=== PATIENT | female | born 1940 | race Caucasian/White ===

== ENCOUNTER 2021-10-14 10:33 | Observation (INO) ==
--- NOTE | 2021-09-08 16:30 | PAT Medication Instructions ---
Medication Instructions Date of Service September 08, 2021 Home Medications enalapril maleate 20 mg tablet 20 mg PO BID hydrochlorothiazide 25 mg tablet 25 mg PO QAM iron aspgl and ps cmplx 150 mg-vit C 50 mg-succinic acid 50 mg capsule (Ferrex) 1 cap PO Q24H liraglutide 0.6 mg/0.1 mL (18 mg/3 mL) subcutaneous pen injector (Victoza 2-Curtis) 1.2 mg SUBCUT QAM metformin 500 mg tablet 500 mg PO QAM acetaminophen 500 mg tablet (Acetaminophen Extra Strength) 1,000 mg PO DAILY PRN calcium carbonate 600 mg-vitamin D3 10 mcg (400 unit) tablet (Calcium 600 + D(3)) 1 tab PO BID carvedilol 25 mg tablet 25 mg PO BID dihydroxyaluminum sodium carb 334 mg chewable tablet 334 mg PO DAILY PRN loperamide 2 mg tablet 1 mg PO QAM omega-3 fatty acids 1,000 mg PO QAM STOP taking 2 weeks before surgery (or as soon as possible if surgery is within 2 weeks) omega-3 fatty acids 1,000 mg PO QAM DO NOT take the morning of surgery enalapril maleate 20 mg tablet 20 mg PO BID hydrochlorothiazide 25 mg tablet 25 mg PO QAM iron aspgl and ps cmplx 150 mg-vit C 50 mg-succinic acid 50 mg capsule (Ferrex) 1 cap PO Q24H liraglutide 0.6 mg/0.1 mL (18 mg/3 mL) subcutaneous pen injector (Victoza 2-Curtis) 1.2 mg SUBCUT QAM metformin 500 mg tablet 500 mg PO QAM calcium carbonate 600 mg-vitamin D3 10 mcg (400 unit) tablet (Calcium 600 + D(3)) 1 tab PO BID dihydroxyaluminum sodium carb 334 mg chewable tablet 334 mg PO DAILY PRN loperamide 2 mg tablet 1 mg PO QAM Take morning of surgery With a small sip of water, OTHERWISE NOTHING TO EAT OR DRINK AFTER MIDNIGHT: acetaminophen 500 mg tablet (Acetaminophen Extra Strength) 1,000 mg PO DAILY PRN (okay to take up to 4 hours prior to surgery if needed) carvedilol 25 mg tablet 25 mg PO BID Take evening before surgery enalapril maleate 20 mg tablet 20 mg PO BID acetaminophen 500 mg tablet (Acetaminophen Extra Strength) 1,000 mg PO DAILY PRN (if needed) calcium carbonate 600 mg-vitamin D3 10 mcg (400 unit) tablet (Calcium 600 + D(3)) 1 tab PO BID carvedilol 25 mg tablet 25 mg PO BID dihydroxyaluminum sodium carb 334 mg chewable tablet 334 mg PO DAILY PRN (if needed) Other Notes If you have any questions please call us at [phone] or [phone] or [phone] or [phone]
--- NOTE | 2021-09-09 13:46 | Anesthesiology Consultation ---
Date of Service September 09, 2021 Assessment & Plan (1) Encounter for pre-operative examination: - will attempt to obtain most recent PCP note for chart. - check BSG am DOS. - COVID screening: Per assessment on 09/09/2021: Travel screen negative, no known COVID-19 positive contacts or current COVID-19 related symptoms in past 2 weeks. Patient vaccinated. Surgeon arranging preop COVID testing, scheduled 10/12/2021. Awaiting results. Chart Review Chart Review: Pending: Refer to Additional Notes / Consult section and Patient seen in Pre Admission Testing Teaching & Discussion Pre-Anesthesia Teaching/Discussion Notes: Instructed NPO after midnight before surgery, except medications with 15 cc of water. Medication instructions provided according to the PAT guidelines. History Surgery Operation Date: 10/14/21 08:50 Proposed Procedures p Left Revision Total Knee Replacement - Robson Jean MD Height/Weight Height: 5 ft 5 in Weight: 95.1 kg Allergies Allergy/AdvReac Type Severity Reaction Status Date / Time No Known Allergies Allergy Verified 09/08/21 14:40 Medications Home Medications Medication Instructions Recorded Confirmed Last Taken enalapril maleate 20 mg tablet 20 mg PO BID 08/19/21 09/08/21 Unknown hydrochlorothiazide 25 mg tablet 25 mg PO QAM 08/19/21 09/08/21 Unknown iron aspgl and ps cmplx 150 mg-vit 1 cap PO Q24H 08/19/21 09/08/21 Unknown C 50 mg-succinic acid 50 mg capsule (Ferrex) liraglutide 0.6 mg/0.1 mL (18 mg/3 1.2 mg SUBCUT QAM 08/19/21 09/08/21 Unknown mL) subcutaneous pen injector (Victoza 2-Curtis) metformin 500 mg tablet 500 mg PO QAM 08/19/21 09/08/21 Unknown acetaminophen 500 mg tablet 1,000 mg PO DAILY PRN 09/08/21 09/08/21 Unknown (Acetaminophen Extra Strength) calcium carbonate 600 mg-vitamin 1 tab PO BID 09/08/21 09/08/21 Unknown D3 10 mcg (400 unit) tablet (Calcium 600 + D(3)) carvedilol 25 mg tablet 25 mg PO BID 09/08/21 09/08/21 Unknown dihydroxyaluminum sodium carb 334 334 mg PO DAILY PRN 09/08/21 09/08/21 Unknown mg chewable tablet loperamide 2 mg tablet 1 mg PO QAM 09/08/21 09/08/21 Unknown omega-3 fatty acids 1,000 mg PO QAM 09/08/21 09/08/21 Unknown Past Medical History Medical History (Updated 09/09/21 @ 15:50 by Karla Hall PA-C) Aseptic loosening of prosthetic knee Diabetes mellitus, type 2 NIDDM Hypertension controlled, stable per pt Orthostatic hypotension Poor historian Urinary incontinence Patient denies h/o stroke, seizures, heart attack, heart failure, blood clots or blood transfusions. Exercise / Class Metabolic Activity III < 4 Walking/Shop/Light housework (ambulates with cane, denies CP or SOB) Past Family History Family History Other No family history of adverse response to anesthesia Past Surgical History Surgical History History of appendectomy History of carpal tunnel release unsure which History of cholecystectomy History of dilatation and curettage History of eye surgery bilateral---pt not sure if it was cataracts or something else History of tonsillectomy History of tooth extraction History of total left knee replacement (TKR) (~12/2002) History of total right hip replacement (~2014) History of total right knee replacement (TKR) (~09/2002) Status post trigger finger release Past Anesthesia History No Hx of Anesthesia Complications and No Family Hx of Anesthesia Complications History of PONV No Hx of PONV and No Hx of Motion Sickness Social History Smoking Status: Never smoker Do You Dip or Chew Tobacco: No Hx Alcohol Use: No Hx Substance Use: No substance use type: does not use Review of Systems Occasional dizziness with rapid position change; managed by slow position changes and physical therapy. Occasional snoring per family. Patient denies chest pain, shortness of breath, dyspnea on exertion, reflux, fever, chills, cough, wheezing, or palpitations. Physical Exam Vital Signs Vitals BP 100/51 (Typical range for pt per pt and daughter) P 66 TEMP 98.5 SP02 97% on RA RESP 17 Physical Full cervical extension range of motion without pain TMD 3.5 finger breaths Mallampati Score 2 Dentition: intact, Lungs: normal respiratory effort. Clear throughout to auscultation, no adventitious breath sounds Cardiac: regular rate and rhythm, no murmurs noted Carotid arteries: negative bruit bilat Lab Results Anesthesia Preop Results Results Anesthesia Widget: WBC 6.11 K/uL (4.8-10.8) 09/09/21 Hgb 12.2 g/dL (12.0-16.0) 09/09/21 Hct 37.3 % (37-47) 09/09/21 Plt 230 K/uL (130-400) 09/09/21 Na 139 mmol/L (136-145) 09/09/21 K 3.9 mmol/L (3.5-5.1) 09/09/21 Cl 102 mmol/L (98-107) 09/09/21 CO2 27 mmol/L (21-32) 09/09/21 BUN 21 mg/dl (6-23) 09/09/21 Creat 0.99 mg/dl (0.6-1.2) 09/09/21 Glucose Level 109 mg/dl (70-99(Fasting)) H 09/09/21 PT 11.8 Seconds (9.0-12.0) 09/09/21 PTT 25.4 Seconds (21.0-31.0) 09/09/21 INR 1.1 (0.9-1.1) 09/09/21 Blood Type B Positive 09/09/21 Antibody Screen NEGATIVE 09/09/21 Testing Laboratory Results 08/29/2021 A1c: 6.7% Electrocardiogram Date: 09/09/21 NSR, rate 63 bpm Chest X-Ray Date: 09/09/21 The lungs are clear. Cardiac silhouette is normal in size. No pleural effusions. No pneumothorax. Mild degenerative changes within the thoracic spine. Prior cholecystectomy. Calcifications within the aortic knob. IMPRESSION: No acute process.
--- NOTE | 2021-10-08 11:45 | History and Physical Report ---
CHIEF COMPLAINT: Persistent left knee pain and discomfort, instability and swelling. HISTORY OF PRESENT ILLNESS: The patient is an 81-year-old white female from [place], who presents specifically for surgical treatment of her left knee. She has a history of a left knee replacement done by ____ up in [place] back in 2000 and then the right one was done 6 months later in 2001 . She had her right hip replaced as well. Over the past 2 years, she developed increased pain and d iscomfort and swelling and instability in her left knee. She has seen ____ who is now retired. She is sent here specifically for revision. She is using a cane to get around. She has done so for the past year. She describes pain with weightbearing. Limps all the time. She would like this fixe d as she is having trouble maintaining any degree of quality of life. PAST MEDICAL HISTORY: Significant for, 1. Diabetes. 2. Hypertension. PAST SURGICAL HISTORY: Include, 1. Tonsillectomy 2. Appendectomy. 3. Left knee replaced in 2000. 4. Right knee replaced in 2001. 5. Right hip replacement. ALLERGIES: None. CURRENT MEDICATIONS: Include, 1. Hydrochlorothiazide. 2. Metformin. 3. Carvedilol. 4. Enalapril. 5. Actos. 6. Calcium. 7. Vitamin C. 8. Pharr 3. 9. Iron. SOCIAL HISTORY: An 81-year-old female. She is from [place]. She is . She does live with one of her children. No alcohol intake. Does not smoke. FAMILY HISTORY: Significant for heart disease and diabetes. REVIEW OF SYSTEMS: Significant for diabetes. Denies any chest pain or shortness of breath. No hist ory of DVT or PE. No known bleeding problems. She had no history of infection in the knee. PHYSICAL EXAMINATION: GENERAL: Shows a pleasant, elderly female. Looks to be in good health. HEENT: Benign. NECK: Supple. No lymphadenopathy. LUNGS: Clear to auscultation. HEART: Regular rate and rhythm. ABDOMEN: Soft, nontender, nondistended. EXTREMITIES: Grossly neurovascularly intact except as follows: Examination of the left knee reveals the patient walks with a markedly antalgic gait. She limps markedly on the left side. She has got a well-healed incision. Small knee effusion. She has got varus deformity to her knee, which is incr eased with weightbearing. There is varus and valgus laxity. She can do a straight leg raise. Flexi on is about 95 degrees. No pain with hip motion. IMAGING DATA: A single x-ray of the pelvis reveals a right hip replacement. The left hip shows some mild arthritis. X-rays of the left knee reveal obvious loosening of the tibial tray with debonding from the cement and tilting of the tray into varus. 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 She is debilitated by this and would like to have this fixed. PLAN: We talked about treatment options. She is set on having this revised. We did check a sed rat e and C-reactive protein, which were both normal and I do not think there are any signs of infection. We are going to take her to the operating room and do a revision knee replacement. Based on her exte nsive osteolysis, I think we are going to have trouble retaining the distal femur with any collateral ligament stability. We will likely do a hinged knee replacement. The risks and benefits of this pr ocedure were explained to the patient to include, but not limited to, DVT, PE, , infection, neur ological injury, vascular injury, bleeding problem, pain, limited range of motion, stiffness, incompl ete relief of symptoms, need for further surgery in the future, etc. The patient understands and raul ires to proceed. Informed consent was obtained. As far as medicines, she is going to hold the metformin the morning of surgery and should take her Ca rvedilol if she takes that in the morning. As far as discharge plans, she is planning to be discharged to home with some family assistance. Job ID: [id number]
[~2021-10-14 10:33] MED LIST: ACETAMINOPHEN 500 MG TAB PO SCH; BUPIVACAINE 0.5 % 5 MG/1 ML PF 10ML VIAL ONE; BUPIVACAINE LIPOSOME/PF 266 MG, BUPIVACAINE/EPINEPHRINE 50 ML, SODIUM CHLORIDE 0.9% 30 ... INFIL SCH; CeleBREX 200 MG CAP PO SCH; EPINEPHrine INJ 1 MG/ML AMP ONE; FAMOTIDINE 20 MG TAB PO SCH; LR 500ML BOLUS, THEN 15ML/HR IV SCH; LR 60ML/HR IV SCH; METOCLOPRAMIDE HCL 10 MG TABLET PO SCH; ROPIVACAINE 0.5% 5 MG/ML 30 ML VIAL ONE; TRANEXAMIC ACID 1,000 MG **IV Intra-op IV SCH; ceFAZolin 2000MG 2,000 MG/15 ML SYR IV SCH
--- NOTE | 2021-10-14 10:55 | History & Physical Bridge Note ---
Date of Service October 14, 2021 History & Physical Bridge Note I have examined the patient, reviewed the History & Physical and in the interval since the performance of the History & Physical I have noted the following changes of clinical significance: no changes noted
[2021-10-14] MEDS ORDERED: MIDAZOLAM HCL 1 MG/ML 2ML VIAL ONE ×2 (12:10)
[2021-10-14] MEDS ORDERED: fentaNYL citrate 100 MCG/2 ML VIAL ONE (12:13)
[2021-10-14] MEDS ORDERED: SODIUM CHLORIDE 0.9% PF 50 ML VIAL ONE (12:16)
[2021-10-14] MEDS ORDERED: BUPIVACAINE/EPINEPHRINE 0.25% 1:200,000 30 ML VIAL ONE (12:16)
[2021-10-14] MEDS ORDERED: PROPOFOL IV EMULSION 10 MG/ML 20 ML VIAL IV ONE ×3 (12:17→15:50)
[2021-10-14] MEDS ORDERED: BUPIVACAINE 0.25% 30 ML VIAL ONE (12:17)
[2021-10-14] MEDS ORDERED: EPINEPHrine INJ 1 MG/ML AMP ONE (12:17)
[2021-10-14] MEDS ORDERED: BUPIVACAINE LIPOSOME 1.3% 266 MG/20 ML VIAL ONE (12:27)
[2021-10-14] MEDS ORDERED: VANCOMYCIN HCL 1000MG/20ML VIAL ONE (12:31)
[2021-10-14] MEDS ORDERED: ONDANSETRON INJ 2 MG/ML 2 ML VIAL ONE (12:52)
[2021-10-14] MEDS ORDERED: PHENYLEPHRINE HCL 10 MG/ML VIAL ONE (13:50)
[2021-10-14] MEDS ORDERED: ePHEDrine sulfate 50 MG/ML AMP ONE (13:57)
--- NOTE | 2021-10-14 16:32 | Post Operative Brief Note ---
PG Immediate Post Op with CF Date of Surgery October 14, 2021 Pre & Post Diagnosis Operation Date: 10/14/21 12:30 Pre-Op Diagnosis: Aseptic Loosening Prosthetic Left Knee Post-Op Diagnosis: Aseptic Loosening Prosthetic Left Knee I identified the patient and participated in the time-out.: Yes Procedure Operation Date: 10/14/21 12:30 Actual Procedures p Left Total Knee Revision(Left) - Robson Jean MD Surgeon Robson Jean MD Loan Assistant Howard Murrell PA-C Estimated Blood Loss 200 Findings Consistent with Post-Op Diagnosis Specimens Specimen Description: Frozen 1. Left knee Synovial fluid number of polys per high power feild. call back [phone] Culture 1 . Left knee synovial fluid for gram stain aerobic /anaerobic A. Left knee bone and removed hardward
--- NOTE | 2021-10-14 16:56 | XRay Report ---
XR knee LT 1 or 2V routine CLINICAL HISTORY: Surgical Post Op TECHNIQUE: 2 views of the left knee were obtained. Comparison: None available at the time of this dictation. FINDINGS: Patient is status post total knee arthroplasty with expected postsurgical changes including soft tiss ue swelling, subcutaneous emphysema, and surgical staple placement. No periarticular lucency or hardw are fracture is seen. IMPRESSION: Expected postoperative appearance status post placement of total knee arthroplasty. ACT 112: Negative or not required by law. Electronically signed by: Elías Cline M.D. 10/14/2021 4:54 PM
[2021-10-14] MEDS ORDERED: PHARMACY GLYCEMIC MGMT CONSULT PRN (17:20)
[2021-10-14] MEDS ORDERED: GLUCOSE 10 TABS/TUBE PO PRN (17:20)
[2021-10-14] MEDS ORDERED: [UNRECOGNIZED DRUG - OTHER] PO PRN (17:20)
[2021-10-14] MEDS ORDERED: CARBOHYDRATES FOR HYPOGLYCEMIA PO PRN (17:20)
[2021-10-14] MEDS ORDERED: NO NSAIDS SCH (17:20)
[2021-10-14] MEDS ORDERED: DEXTROSE 50% 50 ML SYRINGE IV PRN (17:20)
[2021-10-14] MEDS ORDERED: ALUMINUM/MAGNESIUM SUSP 30 ML UDC PO PRN (17:20)
[2021-10-14] MEDS ORDERED: MAGNESIUM HYDROXIDE SUSP 30 ML UDC PO PRN (17:20)
[2021-10-14] MEDS ORDERED: bisacodyL 10 MG SUPP PR PRN (17:20)
[2021-10-14] MEDS ORDERED: NALOXONE HCL 0.4 MG/1 ML VIAL/CARP IV PRN (17:20)
[2021-10-14] MEDS ORDERED: METOCLOPRAMIDE HCL INJ 5 MG/ML 2 ML VIAL IV PRN (17:20)
[2021-10-14] MEDS ORDERED: HYDROmorphone INJ 0.5 MG/0.5 ML SYR IV PRN (17:20)
[2021-10-14] MEDS ORDERED: [UNRECOGNIZED DRUG - MIXTURE] PO SCH (17:20)
[2021-10-14] MEDS ORDERED: ONDANSETRON INJ 2 MG/ML 2 ML VIAL IV PRN (17:20)
[2021-10-14] MEDS ORDERED: oxyCODONE HCL IR 5 MG TAB (IMMEDIATE RELEASE) PO PRN (17:20)
[2021-10-14] MEDS ORDERED: GLUCAGON FOR INJ 1 MG VIAL SQ PRN (17:20)
[2021-10-14] MEDS ORDERED: GLUCOSE 40% GEL 15 GM TUBE PO PRN (17:20)
--- NOTE | 2021-10-14 18:14 | Anesthesiology Progress Note ---
Date of Service October 14, 2021 Anesthesia Post Procedure Vital Signs Vital Signs: Temp Pulse Pulse Resp BP BP Pulse Ox 10/14/21 18:00 70 17 124/66 98 10/14/21 17:45 55 L 17 133/76 98 10/14/21 17:35 36.4 C L 60 17 123/69 96 10/14/21 17:25 61 12 114/62 98 10/14/21 17:15 61 18 112/59 L 97 10/14/21 17:05 36.3 C L 66 12 109/67 97 10/14/21 16:55 60 20 113/61 97 10/14/21 16:45 61 16 116/60 98 10/14/21 16:35 68 20 111/62 95 10/14/21 16:28 36.2 C L 65 16 106/56 L 96 10/14/21 11:54 37 C 71 20 129/76 98 Transfer of Care Handoff Completed per policy Notes Mental Status: alert / awake / arousable and participated in evaluation Patient Amnestic to Procedure: Yes Nausea / Vomiting: adequately controlled Pain: adequately controlled Airway Patency, RR, SpO2: stable & adequate BP & HR: stable & adequate Hydration State: stable & adequate Anesthetic Complications: no major complications apparent
--- NOTE | 2021-10-14 18:24 | Operative Report ---
PG Post Operative Report Pre & Post Diagnosis Operation Date: 10/14/21 12:30 Pre-Op Diagnosis: Aseptic Loosening Prosthetic Left Knee Post-Op Diagnosis: Aseptic Loosening Prosthetic Left Knee I identified the patient and participated in the time-out.: Yes Procedure Operation Date: 10/14/21 12:30 Actual Procedures p Left Total Knee Revision(Left) with resection arthroplasty, distal femoral replacement and hinged knee arthroplasty. Robson Jean MD Surgeon Robson Jean MD Loan Documentation Specialist Howard Murrell PA-C Estimated Blood Loss 200 Findings Consistent with Post-Op Diagnosis Specimens Left distal femur and bone cuts sent for pathology Fluid sent for stat gram stain aerobic anaerobic culture. Frozen section sent from the synovium which revealed 0 polys per high-power fi eld. Anesthesia Type Spinal MAC Complications none Disposition Accompanied Patient To Recovery: No Indications Patient is an 81-year-old female now about 21 years out from bilateral knee replacements done several months apart. Over the past several years she has developed a marked increased pain discomfort in the left knee and x-ray evidence of clear loosening of the tibial tray. She had an infectious work-up and it with a normal sed rate and C-reactive protein. We tried to aspirate her knee but only got a little bit of blood not enough to really evaluate. There is no clinical signs of infection. She had extreme osteolysis as well as the distal femur and the proximal tibia. She elected proceed with revision arthroplasty. She was medically optimized for surgery. Description of Procedure Operative implants consist of: 1. Biomet distal femoral replacement with a 7 cm elliptical segment with a 50 mm x 90 mm cemented stem. 2. Tibial revision and hinged knee tibial tray with a 63 mm size and 160mm stem. 3. 14mm polyethylene insert for hinged knee replacement. The patient was taken the operating, identified, placed on the operating table supine position protectors were properly padded. IV antibiotics tried by anesthesia team. A spinal anesthetic and been implemented holding area. Summers catheter was placed in sterile fashion. Left thigh turn was then placed in left lower extremities and prepped draped in usual sterile fashion. The left leg was elevated exsanguinated with use of an Esmarch in terms playset 300 mmHg. An anterior approach left knee was then performed using the previous incision and extending it just slightly proximally and distally. Sharp dissection was carried through subcutaneous tissue down the extensor mechanism. Medial parapatellar arthrotomy incision was made. Fluid was sent off for analysis for stat gram stain and aerobic anaerobic culture. A subperiosteal dissection was carried out medially. There was some fracturing and fragmentat ion of the medial tibial plateau. We tried to preserve as much bone as possible. There was bone fragmentation the posterior patella tendon was well which was a very carefully excised protecting the tendon. A complete synovectomy of the suprapatellar pouch and medial lateral gutters was performed. There was extensive synovitis. The knee was then flexed and that the patella subluxated. The polyethylene was removed. I then remove the tibial tray without difficulty as it was clearly grossly loose. At this point I felt I could revise the knee so we went ahead and resected the distal femur. There was apparent extensive osteolysis of the distal femur underneath the femoral component and I thought that it would be very difficult goal to use any of her distal femoral bone for an implant. Therefore we just resected the distal 7 cm. We then remove the cement from the proximal tibia as well as all fibrous tissue. I then reamed the proximal tibia up up to a size 12 mm reamer. The intramedullary cutting guide was placed. The tibia was then cut down to a reasonable surface of bony support. There were warm resting some areas which I felt we could fill with cement. The tibial tray for the 63 tray was pinned in the proximal tibia was prepared for the 63 tray. We placed this in extension was drawn the femur. The distal femur was reamed up to a size 15. We then trialed the implant and fit nicely. We trialed the complex and the 14 mm insert fit most appropriately. I did realize I probably lower the joint line slightly but the patella tracked nicely and the knee ranged very nicely. We elect to place these implants. All trial implants were removed. I did clean the proximal tibia of all fibrous tissue. Double batch of Palacos G cement was mixed with additional gram of vancomycin. This was injected in the canals of the femur and the tibia and then implants were placed. Once the cemented hardened we trialed the knee and the 14 mm insert fit appropriately. The permanent insert was placed in the hinged knee was assembled. Knee was taken through range of motion patella tracked nicely with no thumbs test. Attention drawn toward closing. Wound was irrigated scope soft pulsatile lavage solution. I injected locally with 100 cc of combination of 20 cc of Exparel, 30 cc normal saline, 50 cc of quarter percent Marcaine with epinephrine. The tourniquet was let down for turn time 105 minutes. Patient did receive 1 g tranexamic acid. I irrigated the wound extensively. The extensor mechanism closed with #1 PDS suture and then 1 Vicryl suture in [id number] fashion. Extensor mechanism checked found to be intact the subcutaneous tissue then closed with 2 Dexon suture in buried interrupted fashion skin was closed skin nico. Leg was then cleaned and dried a sterile dressing was Xeroform, 4 x 4's, sterile cast padding, Yazan bandage were applied. Patient then transferred to the recovery room in stable condition. Patient tolerated procedure well and there were no complications. Howard Murrell, my physician medical assistant per diem, was present for the entire procedure. His assistance was essential and required for appropriate patient positioning, prepping and draping, surgical exposure, performing the technical details of the operation, placement the implants, closure of the wound, and placement of the sterile bandage. I attest to the content of the Intraoperative Record and any orders documented therein. Any exceptions are noted below.
--- NOTE | 2021-10-14 18:27 | Pharmacy Report ---
Pharmacy Glycemic Short Note 2 - Date of Service October 14, 2021 - Glycemic Short BSG Results (Last 24 hours): 10/14/21 10/14/21 10:58 16:43 POC Glucose 128 H 188 H OUTPATIENT ANTIDIABETIC REGIMEN: * Metformin * Liraglutide * HbA1c ordered for tomorrow ASSESSMENT: * 81 yo F w T2DM * Will start weight-based moderate stress Novolog * Will give one dose of Lantus at ~0.2 units/kg. Will follow up in AM PLAN FOR INPATIENT GLYCEMIC CONTROL: * Hold outpatient diabetes medications * Basal insulin * Lantus 20 units SQ x1 * Bolus insulin * NovoLog per scale ACHS or Q6hrs while NPO * Goal Range: Low 110 mg/dL - High 140 mg/dL * Correction Factor: 25 mg/dL/unit * Nutritional / Prandial insulin per carb ratio of 1 unit per 8 grams CHO consumed
[2021-10-14] MEDS ORDERED: INSULIN GLARGINE SOLOSTAR 100 UNITS/ML 3 ML PEN SC ONE (18:30)
[2021-10-14] MEDS ORDERED: SENNA 8.6 MG TAB PO SCH (21:00)
[2021-10-14] MEDS: SODIUM CHLORIDE 0.9% 1000ML 1,000 ML IV SCH (21:41)
[2021-10-14] MEDS: ceFAZolin 2000MG 2,000 MG/15 ML SYR IV SCH (21:46)
[2021-10-14] MEDS: INSULIN ASPART PER UNIT SC SCH ×2 (21:48→22:01)
[2021-10-14] MEDS: ASPIRIN 81 MG ECTAB PO SCH (21:50)
[2021-10-14] MEDS: CALCIUM 600MG + VIT D 400 IU TAB PO SCH (21:51)
[2021-10-14] MEDS: carvediloL 25 MG TAB PO SCH (21:51)
[2021-10-14] MEDS: ACETAMINOPHEN 500 MG TAB PO SCH (21:51)
[2021-10-14] MEDS: ENALAPRIL MALEATE 10 MG TAB PO SCH (21:52)
[2021-10-14] MEDS: ASCORBIC ACID 500 MG TAB PO SCH (21:52)
[2021-10-14] MEDS: DOCUSATE SODIUM 100 MG CAP PO SCH (21:52)
[2021-10-14] MEDS: KETOROLAC TROMETHAMINE 15 MG/ML VIAL IV SCH (22:02)
[2021-10-14] MEDS ORDERED: TRANEXAMIC ACID / 0.7% NACL 1,000 MG/100 ML BAG IV SCH (22:30)
[2021-10-15] MEDS: KETOROLAC TROMETHAMINE 15 MG/ML VIAL IV SCH ×2 (00:35→08:32)
[2021-10-15] MEDS: INSULIN ASPART PER UNIT SC SCH ×4 (00:36→13:27)
[2021-10-15] MEDS: SODIUM CHLORIDE 0.9% 1000ML 1,000 ML IV SCH (05:33)
[2021-10-15] MEDS: ACETAMINOPHEN 500 MG TAB PO SCH (05:59)
[2021-10-15] MEDS: ceFAZolin 2000MG 2,000 MG/15 ML SYR IV SCH (05:59)
[2021-10-15 07:21] LABS: Hematocrit (blood only) 34.7 % (37-47); Hemoglobin 11.5 g/dL (12.0-16.0); Mean Corpuscular Hemoglobin 29.5 pg (25-34); Mean Corpuscular Hgb Conc 33.1 g/dL (32-36); Mean Platelet Volume 10.3 fL (7.4-10.4); Platelet Count 172 K/uL (130-400); RDW Coefficient of Variation 12.6 % (11.5-14.5); RDW Standard Deviation 40.5 fL (36.4-46.3); White Blood Count 10.43 K/uL (4.8-10.8)
[2021-10-15 07:42] LABS: BUN Creatinine Ratio 23.7 (10-20); Calcium 8.7 mg/dl (8.5-10.1); Creatinine Clr Calc Pharmacy 36.9 ml/min; Est GFR (African American) 44.1 ml/min; Est GFR (Non-African American) 38.1 ml/min; Potassium 4.1 mmol/L (3.5-5.1)
[2021-10-15] MEDS: carvediloL 25 MG TAB PO SCH (08:23)
[2021-10-15] MEDS: DOCUSATE SODIUM 100 MG CAP PO SCH (08:23)
[2021-10-15] MEDS: ENALAPRIL MALEATE 10 MG TAB PO SCH (08:23)
[2021-10-15] MEDS: ASCORBIC ACID 500 MG TAB PO SCH (08:23)
[2021-10-15] MEDS: CALCIUM 600MG + VIT D 400 IU TAB PO SCH (08:24)
[2021-10-15] MEDS: ASPIRIN 81 MG ECTAB PO SCH (08:24)
[2021-10-15 09:00] LABS: Estimated Average Glucose 154 mg/dl
[2021-10-15] MEDS ORDERED: INSULIN GLARGINE SOLOSTAR 100 UNITS/ML 3 ML PEN SC SCH (09:00)
[2021-10-15] MEDS ORDERED: LOPERAMIDE HCL 2 MG CAP PO SCH (09:00)
[2021-10-15] MEDS ORDERED: MULTIVITAMIN TAB PO SCH (09:00)
[2021-10-15] MEDS ORDERED: OMEGA-3 (PURIFIED FISH OIL) 1 GM CAP PO SCH (09:00)
[2021-10-15] MEDS ORDERED: DOCUSATE SODIUM/SENNA 50/8.6MG TAB PO SCH (09:00)
[2021-10-15] MEDS ORDERED: hydroCHLOROthiazide 25 MG TAB PO SCH (09:00)
--- NOTE | 2021-10-15 09:40 | Progress Notes ---
DATE OF NOTE: 10/15/2021. SUBJECTIVE: An 81-year-old white female postoperative day 1 from a left knee revision to a hinged kn ee replacement for aseptic loosening. She is doing pretty well this morning. Some slightly confused . Not really having much pain. No chest pain or shortness of breath. Not feeling dizzy or lighthead ed. OBJECTIVE: VITAL SIGNS: Temperature 36.5. Vital signs are stable. GENERAL: Shows a pleasant, elderly female. Sitting up in her bedside chair. She is just slightly c onfused. LUNGS: Clear to auscultation. HEART: Regular rate and rhythm. ABDOMEN: Soft, nontender, nondistended. EXTREMITIES: Grossly neurovascularly intact except as follows. Examination of the left lower extremity reveals the dressing to be clean, dry and intact. She can do a straight leg raise. She can dorsiflex and plantarflex her foot appropriately. She is neurologica lly intact. LABORATORY: Hemoglobin 11.5, hematocrit 34.7. Electrolytes are stable. Creatinine is just slightly elevated. ASSESSMENT: An 81-year-old white female postop day 1 from a left knee revision to a hinged knee, doi ng pretty well. Pain is controlled. She is slightly confused, likely multifactorial. Pain is contr olled. PLAN: 1. DVT prophylaxis include thigh-high TEDs, SCDs, and aspirin twice a day. 2. PT, OT, weightbear as tolerated. Left total knee protocol. 3. Pain control, doing okay with current pain regimen. We are going to try and limit narcotics to a void confusion. 4. Elevated creatinine. We are going to hold her NSAIDs for now. 5. Disposition: She is hoping to be discharged to her daughter's house with some home health once a dequately recovered and stable condition. We will see how therapy goes this morning. Job ID: [id number]
--- NOTE | 2021-10-19 20:10 | Discharge Summary ---
Date of Service October 19, 2021 Discharge Data Procedures Performed Operation Date: 10/14/21 12:30 Actual Procedures p Left Total Knee Revision(Left) - Robson Jean MD Hospital Course (1) Status post revision of total replacement of left knee: This is an 81 year old patient admitted on 10/14/21 and underwent revision arthroplasty to a hinged knee. She tolerated the procedure well and there were no complications. Transferred to the PACU post op and later to the orthopedic floor for further care. She was given ancef for antibiotic prophylaxis. She was also given BASILIO stockings, SCDs, and aspirin for DVT prophylaxis. Hemoglobin, hematocrit, and vital signs were monitored during her hospital stay and remained stable. Did not require any blood transfusions. There were no complications during her hospital stay. By post op day #1 the patient was tolerating a diabetic diet, pain was reasonably controlled with oral pain medicine, and she was participating in physical therapy. On post op day #1 the patient was discharged home and set up with home health care. She was given printed discharge instructions including prescriptions for extra strength tylenol, aspirin, zofran, toradol, and oxycodone. Continue physical therapy, weight bearing as tolerated. Continue BASILIO stockings. Follow up approximately 2 weeks post op or sooner if there are problems or concerns. Coding Level of Care Code None Diagnoses Status post revision of total replacement of left knee Z96.652
== END 2021-10-15 14:29 | disposition home health service (06) ==
LOC: ASU 10:33 → PACUINP 10:33 → 3N 20:02
DX: T84.053A Periprosthetic osteolysis of internal prosthetic left knee joint, initial encounter; M65.9 Synovitis and tenosynovitis, unspecified; Z79.84 Long term (current) use of oral hypoglycemic drugs; E11.9 Type 2 diabetes mellitus without complications; Z79.899 Other long term (current) drug therapy; I10 Essential (primary) hypertension